=== PATIENT | male | born 1990 | race Caucasian/White ===

== ENCOUNTER → 2018-08-31 | Outpatient (REF) | payer SELFPAY ==
[2018-08-31 10:46] LABS: SEMEN APPEARANCE OPAQUE (OPAQUE); SEMEN VISCOSITY VISCOUS (LIQUID)
[2018-08-31 10:47] LABS: SPERM CONCENTRATION 71.7 M/ml (>=15.0); WBC CONCENTRATION >1 M/ml (<=1 M/ml)
== END ==
LOC: M LAB REF 10:12
PROVIDERS: ATTEND Physician Assistant
DX: N46.9 Male infertility, unspecified (principal)

== ENCOUNTER → 2018-09-14 | Outpatient (REF) | payer OTHER ==
[2018-09-14 10:51] LABS: SEMEN APPEARANCE OPAQUE (OPAQUE); SEMEN VISCOSITY LIQUID (LIQUID)
[2018-09-14 10:52] LABS: SEMEN pH 8.5 (7.0-8.0); SPERM CONCENTRATION 54.8 M/ml (>=15.0); WBC CONCENTRATION >1 M/ml (<=1 M/ml)
== END ==
LOC: M LAB REF 10:21
PROVIDERS: ATTEND Physician Assistant
DX: N46.9 Male infertility, unspecified (principal)

== ENCOUNTER 2019-05-28 10:09 | Emergency (ER) | payer OTHER ==
[~2019-05-28] VITALS: Ht 172.7 cm; Wt 91.2 kg
[2019-05-28] MEDS ORDERED: NAPR-837 PO (11:52)
--- NOTE | 2019-05-28 11:52 | REP ---
Left foot series: Four views. History: Left foot pain. Rule out stress fracture. Findings: Four views of the left foot show overall normal mineralization. There is Achilles calcaneal spurring. There is no evidence of periosteal reaction or abnormal lucency to suggest a stress fracture based on plain radiographs. The radiographic findings may lag behind clinical symptoms. Bones, joints, and soft tissues are unremarkable. Impression: Negative radiographs of the left foot. Electronically Signed by Liban Fields MD 05/28/2019 01:52 P
[2019-05-28 11:58] VITALS: BP 130/71
== END 2019-05-28 11:59 | disposition home or self-care (01) ==
LOC: M ED 10:09
DX: M72.2 Plantar fascial fibromatosis (principal); F17.200 Nicotine dependence, unspecified, uncomplicated

== ENCOUNTER 2021-02-25 07:30 | Emergency (ER) | payer OTHER ==
[~2021-02-25] VITALS: Ht 175.3 cm; Wt 88.0 kg
[~2021-02-25 07:30] MED LIST: NAPR-837 PO
[2021-02-25] MEDS ORDERED: LIDOCAINE 2% MDV 20ML VIAL SC ONE (08:00)
[2021-02-25] MEDS ORDERED: DOXY1CAP62 PO (09:06)
[2021-02-25 09:16] VITALS: BP 141/73
[2021-02-26 19:08] LABS: Lyme Disease IgG/IgM Antibodie <0.91 ISR (0.00-0.90); Lyme Disease IgM Ab Quantitati <0.80 index (0.00-0.79)
== END 2021-02-25 09:18 | disposition home or self-care (01) ==
LOC: M ED 07:30
DX: L03.116 Cellulitis of left lower limb (principal); F17.200 Nicotine dependence, unspecified, uncomplicated; M72.2 Plantar fascial fibromatosis